=== PATIENT | male | born 1980 | race Caucasian/White ===

== ENCOUNTER → 2021-07-13 | Outpatient (CLI) | payer BC, OTHER ==
--- NOTE | 2021-07-13 16:28 | REPVR ---
PROCEDURE INFORMATION: Exam: MR Lumbar Spine Without Contrast Exam date and time: 07/13/2021 11:10 AM Age: 41 years old Clinical indication: Low back pain; Additional info: Lumbago with sciatica, unspecified side TECHNIQUE: Imaging protocol: Multiplanar magnetic resonance images of the lumbar spine without intravenous contrast. COMPARISON: No relevant prior studies available. FINDINGS: Vertebrae: Anatomic alignment. No acute fracture seen. Spinal cord: The conus medullaris ends normally. There is disc desiccation with mild disc height loss from L3-L4 through L5-S1. L1-L2: No significant disc disease. No significant spinal canal stenosis. No neural foraminal stenosis. L2-L3: No significant disc disease. No significant spinal canal stenosis. No neural foraminal stenosis. L3-L4: Mild disc bulge and facet arthropathy. High-intensity zone in anterior disc margin. The central spinal canal remains patent. Slight right lateral recess narrowing. No significant foraminal stenoses. L4-L5: Mild diffuse disc bulge, facet arthropathy and ligamentum flavum buckling. A left lateral canal disc protrusion with high-intensity zone measures approximately 3 mm preferentially narrowing the left lateral recess near the left L5 nerve root. Cranially migrating left far lateral disc extrusion measures approximately 4 mm in AP dimension and extends 4 mm above the disc space impinging upon the exiting left L4 nerve root, image 3 series 201. Central spinal canal stenosis is [id number]. Mild right neural foraminal stenosis. L5-S1: [id number] diffuse disc bulge. 2-3 mm left lateral canal disc protrusion with high-intensity zone does not contribute to nerve root impingement. No significant foraminal stenoses. Soft tissues: Unremarkable. IMPRESSION: 1. Left lateral canal disc protrusion/left foraminal disc extrusion at L4-L5 may be cause of left L5 and L4 distribution radiculopathy, respectively. 2. [id number] central spinal canal stenosis at the L4-L5 level. Electronically signed by: Tammy Villa On 07/13/2021 16:28:08 PM
== END ==
LOC: M PLAIMG 10:29
PROVIDERS: ATTEND Chiropractor
DX: M54.40 Lumbago with sciatica, unspecified side (principal)

== ENCOUNTER → 2023-10-27 | Outpatient (CLI) | payer BC | LOC: M PAIN 08:00 | PROVIDERS: ATTEND Nurse Practitioner Family | DX: M96.1 Postlaminectomy syndrome, not elsewhere classified (principal); M51.16 Intervertebral disc disorders with radiculopathy, lumbar region; G89.29 Other chronic pain; Z79.899 Other long term (current) drug therapy ==

== ENCOUNTER → 2023-11-15 | Outpatient (CLI) | payer BC ==
[~2023-11-15] MED LIST: PROHANCE 279.3MG/ML 15ML VIAL As Ordered ONE; PROHANCE 279.3MG/ML 5ML VIAL As Ordered ONE
== END ==
LOC: M RAD 08:41
PROVIDERS: ATTEND Nurse Practitioner Family
DX: M96.1 Postlaminectomy syndrome, not elsewhere classified (principal)

== ENCOUNTER → 2023-11-21 | Outpatient (CLI) | payer BC | LOC: M PAIN 10:15 | PROVIDERS: ATTEND Nurse Practitioner Family | DX: M96.1 Postlaminectomy syndrome, not elsewhere classified (principal); M48.061 Spinal stenosis, lumbar region without neurogenic claudication; G89.29 Other chronic pain; Z79.899 Other long term (current) drug therapy ==

== ENCOUNTER → 2024-04-09 | Outpatient (CLI) | payer BC ==
[~2024-04-09] MED LIST changes: +ISOVUE-M 300 61% 15ML VIAL As Ordered ONE; +LIDOCAINE 1% SDV 30ML VIAL As Ordered ONE; -PROHANCE 279.3MG/ML 15ML VIAL As Ordered ONE; -PROHANCE 279.3MG/ML 5ML VIAL As Ordered ONE; +dexAMETHasone 10MG/1ML VIAL PRES.FREE As Ordered ONE
== END ==
LOC: M PAIN 10:00
PROVIDERS: ATTEND Anesthesiology
DX: M96.1 Postlaminectomy syndrome, not elsewhere classified (principal); G89.29 Other chronic pain; G47.30 Sleep apnea, unspecified; Z79.899 Other long term (current) drug therapy
CPT/HCPCS: 62323; J1100; Q9967